=== PATIENT | male | born 1975 | race Caucasian/White ===

== ENCOUNTER 2024-05-30 10:17 | Day surgery (SDC) | payer OTHER ==
[~2024-05-30] VITALS: Ht 172.7 cm; Wt 97.5 kg
[2024-05-30] MEDS ORDERED: MIDAZOLAM 5 MG/5 ML VIAL ONE (10:36)
[2024-05-30] MEDS ORDERED: PROPOFOL 200 MG/20 ML VIAL IV ONE (10:36)
[2024-05-30] MEDS ORDERED: fentaNYL citrate 0.05 MG/ML VIAL ONE (10:36)
[2024-05-30] MEDS ORDERED: LIDOCAINE 2% 100 MG/5 ML SYR IVP ONE (12:18)
[2024-05-30] MEDS ORDERED: EPINEPHrine PFS 0.1 MG/ML SYR IVP ONE (15:35)
== END 2024-05-30 13:30 | disposition home or self-care (01) ==
LOC: MMU 10:17 → MDS 10:17
PROVIDERS: ATTEND Internal Medicine Gastroenterology
DX: R19.5 Other fecal abnormalities (principal); K63.5 Polyp of colon; K64.4 Residual hemorrhoidal skin tags; E78.00 Pure hypercholesterolemia, unspecified; E11.9 Type 2 diabetes mellitus without complications; Z98.890 Other specified postprocedural states
CPT/HCPCS: 45381; 45385; 82948; 88305; J2001; J2250; J2704; J3010